=== PATIENT | female | born 1965 | race American Indian/Alaskan Native ===

== ENCOUNTER 2021-07-30 20:40 | Emergency (ER) | payer SELFPAY ==
[2021-07-30] MEDS ORDERED: SODIUM CHLORIDE 0.9% 1000 ML 1,000 ML IV ONE (21:01)
[2021-07-30] MEDS ORDERED: KETOROLAC 30 MG/1 ML INJ IV ONE (21:08)
--- NOTE | 2021-07-30 21:13 | Emergency Department Report ---
ED General Adult HPI - General Chief complaint: Pain General Stated complaint: FLANK PAIN Time Seen by Provider: 07/30/21 21:00 Source: patient, EMS Mode of arrival: Stretcher Limitations: Physical Limitation - History of Present Illness Initial comments: Patient presents with multiple complaints. She is here with flank pain, right hip pain, neck pain, vaginal discharge, generalized malaise, headaches, chronic pain issues, inability to fill medications, and other social problems. Patient basically states that she has been having 3 weeks of right hip pain and right flank pain. The pain is in the right flank. It is in the right hip. It is aching and throbbing. It radiates down to the lateral aspect of the right thigh. She states that she is having some left knee pain and that needs to be drained. She was told that she needs a knee replacement. Patient is complaining of aching pain and throbbing pain in the left knee. She states that she has chronic back pain and neck pain. The neck pain is radiating up into her head and giving her headaches. Again, she states that all of this is started over the last 3 weeks. She then later tells me that she has chronic pain involving rods in her back. She cannot delineate what is chronic versus what is subacute to acute. Patient reports having a brown vaginal discharge. She spoke with her doctor in [place] and was treated symptomatically and empirically with amoxicillin, Flagyl, and a yeast cream. She states that that really did not change the discharge. She was told by her doctor in [place] to come here because at one point she had a low blood pressure that caused her kidneys to fail. Patient never required hospitalization. The vaginal discharge that she states has been chronic for 3 weeks. It is uncomfortable. She has no abdominal pain otherwise. Patient denies dysuria. - Related Data Previous Rx's Medication Instructions Recorded Last Taken Type Doxycycline Monohydrate 100 mg PO BID #20 capsule 07/30/21 Unknown Rx [Doxycycline Monohydrate CAP] Ibuprofen [Motrin] 600 mg PO Q8H PRN #30 tablet 07/30/21 Unknown Rx Lidocaine [Lidoderm] 1 each TP DAILY #30 adh..patch 07/30/21 Unknown Rx Allergies Allergy/AdvReac Type Severity Reaction Status Date / Time tramadol Allergy Rash Verified 07/30/21 20:52 ED Review of Systems ROS: Stated complaint: FLANK PAIN Other details as noted in HPI Comment: All other systems reviewed and negative Constitutional: denies: fever Eyes: denies: eye pain ENT: denies: ear pain Respiratory: denies: cough Cardiovascular: denies: chest pain Endocrine: denies: unexplained weight loss Gastrointestinal: as per HPI Genitourinary: as per HPI Musculoskeletal: as per HPI Skin: denies: rash Neurological: as per HPI Hematological/Lymphatic: denies: easy bruising ED Past Medical Hx - Past Medical History Previous Medical History?: Yes Hx CVA: Yes Hx Diabetes: Yes Hx COPD: Yes Additional medical history: Chronic Pain. Kidney Problems. Hypotension. Spinal Cord Problems - Surgical History Past Surgical History?: Yes Additional Surgical History: Left toes amputation. Back with rods. Neck with rods - Family History Family history: hypertension - Social History Smoking Status: Never Smoker Substance Use Type: Marijuana - Medications Home Medications: Home Medications Medication Instructions Recorded Confirmed Last Taken Type Doxycycline Monohydrate 100 mg PO BID #20 capsule 07/30/21 Unknown Rx [Doxycycline Monohydrate CAP] Ibuprofen [Motrin] 600 mg PO Q8H PRN #30 tablet 07/30/21 Unknown Rx Lidocaine [Lidoderm] 1 each TP DAILY #30 adh..patch 07/30/21 Unknown Rx ED Physical Exam - General Limitations: No Limitations, Physical Limitation, Other (Pulse ox noted and normal) General appearance: alert, in no apparent distress, obese (Moderate) - Head Head exam: Present: atraumatic, normocephalic, normal inspection - Eye Eye exam: Present: normal appearance. Absent: EOMI, scleral icterus - ENT ENT exam: Present: normal exam, mucous membranes moist, normal external ear exam - Neck Neck exam: Present: normal inspection, tenderness (Diffuse paraspinous). Absent: meningismus - Respiratory Respiratory exam: Present: normal lung sounds bilaterally. Absent: respiratory distress - Cardiovascular Cardiovascular Exam: Present: normal rhythm, tachycardia - GI/Abdominal GI/Abdominal exam: Present: soft. Absent: distended, tenderness - External exam: Present: normal external exam Speculum exam: Present: vaginal discharge. Absent: vaginal bleeding (Thin and white), foreign body Bi-manual exam: Present: normal bi-manual exam, other (Exam completed with female sales representative supervisor) - Extremities Exam Extremities exam: Present: normal capillary refill, other (Patient has diffuse tenderness in the left knee but there is no effusion, no deformity, no laxity, and no erythema or warmth.). Absent: calf tenderness - Back Exam Back exam: Present: CVA tenderness (R) (Mild). Absent: CVA tenderness (L) - Neurological Exam Neurological exam: Present: alert, oriented X3, CN II-XII intact. Absent: motor sensory deficit - Psychiatric Psychiatric exam: Present: normal affect, normal mood - Skin Skin exam: Present: warm, dry ED Course Vital Signs 07/30/21 07/30/21 20:52 21:33 Temperature 98.2 F Pulse Rate 105 H 84 Respiratory 18 11 L Rate Blood Pressure 136/76 Blood Pressure 135/62 [Right] O2 Sat by Pulse 98 99 Oximetry - Reevaluation(s) Reevaluation #1: 07/30/21 21:09 IV and labs ordered. Old records reviewed. Reevaluation #2: 07/30/21 22:33 Pelvic exam was completed. I do not appreciate any obvious infectious pathology. Certainly, patient does not have symptoms consistent with PID. ED Medical Decision Making - Lab Data Result diagrams: 07/30/21 21:21 07/30/21 21:21 - Medical Decision Making Patient presented with multiple issues. She did have a vaginal discharge. Cultures have been sent. Patient was started empirically on doxycycline. She does not have evidence of PID. She states that she is not sexually active. I am not concerned for or ectopic based on the fact that she is 56 years old and not having active menstrual cycles. Patient also reported generalized pain in various different locations. This can be treated symptomatically. She does not require radiographic imaging at this time. She does not require arthrocentesis of the left knee despite the fact that she says that she has fluid on her knee. She certainly does not require CT or MRI. She was referred to her primary care physician locally for follow-up. Critical Care Time: No Critical care attestation.: If time is entered above; I have spent that time in minutes in the direct care of this critically ill patient, excluding procedure time. ED Disposition Clinical Impression: Acute right flank pain, Right hip pain, Cervical pain, Vaginal discharge Left knee pain Qualifiers: Chronicity: chronic Qualified Code(s): M25.562 - Pain in left knee Acute headache Qualifiers: Headache type: unspecified Intractability: not intractable Qualified Code(s): R51.9 - Headache, unspecified Disposition: 01 HOME / SELF CARE / HOMELESS Is pt being admited?: No Condition: Stable Instructions: Lateral Patellar Compression Syndrome Rehab-SportsMed, Hip Pain, Radicular Pain, Flank Pain, Adult, [id number], How to Use Cold Therapy, [id number], General Headache Without Cause, Pain Without a Known Cause Additional Instructions: Try ice and heat for pain. Drink plenty water. Return for problems. Continue home medication. Follow-up with the referral physician as documented. Take all of the antibiotics. Prescriptions: Doxycycline Monohydrate [Doxycycline Monohydrate CAP] 100 mg PO BID #20 capsule Lidocaine [Lidoderm] 1 each TP DAILY #30 adh..patch Ibuprofen [Motrin] 600 mg PO Q8H PRN #30 tablet PRN Reason: Pain Referrals: PRIMARY CAREMD [Referring] - 3-5 Days MOISÉS MEJIAS MD [Staff Physician] - 3-5 Days
[2021-07-30 21:40] LABS: Hematocrit 38.4 % (30.3-42.9); Hemoglobin 12.9 gm/dl (10.1-14.3); Mean Corpuscular HGB Conc 34 % (30-34); Mean Corpuscular Volume 81 fl (79-97); Platelet Count 254 K/mm3 (140-440); Red Blood Count 4.74 M/mm3 (3.65-5.03); Red Cell Distribution Width 14.1 % (13.2-15.2)
[2021-07-30 21:57] LABS: Blood Urea Nitrogen 12 mg/dL (7-17); Hemolysis Index 6
[2021-07-30 22:00] LABS: BUN/Creatinine Ratio 20
[2021-07-30 23:30] VITALS: BP 133/65
== END 2021-07-30 23:30 | disposition home or self-care (01) ==
LOC: ED 20:40
DX: N89.8 Other specified noninflammatory disorders of vagina (principal); R51.9 Headache, unspecified; M25.551 Pain in right hip; M25.562 Pain in left knee; M54.2 Cervicalgia; R10.9 Unspecified abdominal pain; G89.29 Other chronic pain; J44.9 Chronic obstructive pulmonary disease, unspecified; E11.9 Type 2 diabetes mellitus without complications; F12.90 Cannabis use, unspecified, uncomplicated; Z88.6 Allergy status to analgesic agent; Z79.899 Other long term (current) drug therapy
CPT/HCPCS: 36415; 80048; 85027; 87210; 96361; 96374; 99284; J1885; J7030